=== PATIENT | female | born 1990 | race American Indian/Alaskan Native ===

== ENCOUNTER 2020-03-21 18:16 | Inpatient (IN) | payer MEDICAID ==
[2020-03-21] MEDS ORDERED: OXYTOCIN 10 UNIT/1 ML INJ ONE (18:27)
--- NOTE | 2020-03-21 18:52 | Procedure Note ---
OB Delivery Note - Delivery Date of Delivery: 03/21/20 Surgeon: HE BENAVIDES (CNM) Estimated blood loss: 100cc - Vaginal Delivery presentation: vertex Delivery position: OA Intrapartum events: precipitous labor- <3hr Delivery induction: none Delivery monitor: external FHT Route of delivery: Delivery placenta: spontaneous Delivery cord: 3 umbilical vessels Episiotomy: none Delivery laceration: none Anesthesia: none Delivery comments: Pt presented to triage with urge to push. SROM clear fluid upon SVE, c/c/+2. This CNM called to the room. Head delivered OA, restituted LOT, shoulders followed with gentle traction. to maternal abdomen, delayed cord clamping. Apgars 9/9. Placental delivered spontaneously and intact, 3VC. Cord blood collected. No lacerations noted. Dr. Reyes notified of patient's status. - Infant A at 1 minute: 9 at 5 minutes: 9 Gender: Female
[2020-03-21] MEDS ORDERED: OXYTOCIN 10 UNIT/1 ML INJ IM ONE (18:58)
--- NOTE | 2020-03-21 19:22 | History and Physical Report ---
History of Present Illness Date of examination: 03/21/20 History of present illness: Patient presented to labor and delivery with complaints of rupture membranes and regular contractions since approximately 4 PM. Patient arrived in triage completely dilated and subsequently had a precipitous delivery in triage. Patient with late care presented for first visit in office on March 05, 2020 at 36 weeks. Menstrual History Regularity: regular Menses every: 30 days Duration: 5 LMP: 07/15/2019 LMP reliability: definite LMP character: normal test type: urine test BC at conception: none Planned ? no EDC Calculations EDC Confirmation: 03/29/2020 Past History : 3 Term Births: 2 Premature Births: 0 Living Children: 2 Para: 2 Mult. Births: 0 Prev : 0 Prev. attempt? 0 Aborta: 0 Elect. Ab: 0 Spont. Ab: 0 Ectopics: 0 # 1 Delivery date: 2016 Weeks Gestation: term labor: no Delivery type: Anesthesia type: epidural Delivery location: [place] Infant Sex: Male weight: 7#4 # 2 Delivery date: 2018 Weeks Gestation: term labor: no Delivery type: Anesthesia type: none Delivery location: [place] Sex: Male weight: 6#4 Comments: unintended home del d/t precip del Past Medical History: Negative Past Medical History Past Surgical History: Negative Past Surgical History Past Medical History Surgery (Non-delinquency prevention officer): Negative Past Surgical History Abnormal PAP: negative ALEXANDRA Exposure: negative Infertility: negative Uterine Anomaly: negative Uterine Surgery (not C/S): negative Other Gynecologic Problems: negative Social Hx: Works at [employer] Infection History Hx of STD: none HIV Risk Eval: low risk Hepatitis B Risk Eval: low risk Personal hx. of genital herpes: no Partner hx. of genital herpes: no Rash, Viral, or Febrile illness since last LMP? no Varicella/Chicken Pox Status: Immunized Genetic History Congenital Heart Defect: Mom: no Dad: no Donna Disease: Mom: no Dad: no Thalassemia Mom: no Dad: no Neural Tube Defect Mom: no Dad: no Down's Syndrome Mom: no Dad: no Alejandro-Sachs Mom: no Dad: no Sickle Cell Disease/Trait Mom: no Dad: no Hemophilia Mom: no Dad: no Muscular Dystrophy Mom: no Dad: no Cystic Fibrosis Mom: no Dad: no Bautista Chorea Mom: no Dad: no Mental Retardation Mom: no Dad: no Fragile X Mom: no Dad: no Other Genetic/Chromosomal Disorder Mom: no Dad: no Child w/other defect Mom: no Dad: no Enviromental Exposures Xray Exposure: no Medication, drug, or alcohol use since LMP: no Chemical/Other Exposure: no Exposure to Cat Liter: no Hx of Parvovirus (Fifth Disease): no Occupational Exposure to Children: none Current Allergies (reviewed today): No known allergies Past History Past Medical History: no pertinent history Past Surgical History: no surgical history 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 (See HPI) Family/Genetic History: other (See HPI) Social history: full code, other (See HPI) - Obstetrical History Expected Date of Delivery: 03/29/20 Actual Gestation: 38 Week(s) 6 Day(s) : 3 Para: 3 Hx # Term Pregnancies: 3 Number of Pregnancies: 0 Spontaneous Abortions: 0 Induced : 0 Number of Living Children: 3 Medications and Allergies Allergies Allergy/AdvReac Type Severity Reaction Status Date / Time No Known Allergies Allergy Unverified 03/21/20 18:56 - Vital Signs Vital signs: Vital Signs Temp Resp 97.7 F 20 03/21/20 18:20 03/21/20 18:20 Temp Pulse Resp BP Pulse Ox 97.7 F 76 20 107/58 96 03/21/20 18:20 03/21/20 19:14 03/21/20 18:20 03/21/20 19:05 03/21/20 19:14 - Physical Exam Breasts: Positive: deferred Cardiovascular: Regular rate Lungs: Positive: Normal air movement Abdomen: Positive: normal appearance Results All other labs normal. Assessment and Plan - Patient Problems (1) Insufficient care, delivered, current hospitalization Current Visit: Yes Status: Acute (2) Vaginal delivery Current Visit: Yes Status: Acute Plan to address problem: Please see delivery note. Patient will be admitted and will start care
[2020-03-21] MEDS ORDERED: LACTATED RINGERS 1,000 ML IV SCH (19:30)
[2020-03-21 20:07] LABS: Hematocrit 36.6 % (30.3-42.9); Hemoglobin 12.4 gm/dl (10.1-14.3); Mean Corpuscular HGB Conc 34 % (30-34); Mean Corpuscular Volume 92 fl (79-97); Platelet Count 196 K/mm3 (140-440); Red Blood Count 3.99 M/mm3 (3.65-5.03); Red Cell Distribution Width 12.8 % (13.2-15.2)
[2020-03-21] MEDS ORDERED: WITCH HAZEL/ GLYCERIN PAD TP PRN (23:02)
[2020-03-21] MEDS ORDERED: LANOLIN/ZINC/DIMETHICONE (LANSINOH) 7 GM TP PRN (23:02)
[2020-03-21] MEDS ORDERED: diphenhydrAMINE 25 MG CAP PO PRN (23:02)
[2020-03-21] MEDS ORDERED: PROMETHAZINE 25 MG TAB PO PRN (23:02)
[2020-03-21] MEDS ORDERED: MAGNESIUM HYDROXIDE (MOM) ORAL LIQD UDC PO PRN (23:02)
[2020-03-22] MEDS: IBUPROFEN 600 MG TAB PO SCH ×3 (00:14→17:10)
[2020-03-22] MEDS: DOCUSATE SODIUM 100 MG CAP PO SCH ×2 (00:15→10:14)
[2020-03-22 08:39] LABS: Hematocrit 35.5 % (30.3-42.9); Hemoglobin 11.9 gm/dl (10.1-14.3)
[2020-03-22] MEDS ORDERED: PRENATAL VIT27-FE FUMARATE-FOLIC ACID VIT TAB PO SCH (10:00)
--- NOTE | 2020-03-22 11:09 | Discharge Summary ---
Providers - Providers Date of Admission: 03/21/20 19:34 Date of discharge: 03/22/20 Attending physician: JANET JEORNIMO 03/21/20 23:02 Consult to Hospice Art Therapist [CONS] Routine Reason For Exam: assistance with , SNS Primary care physician: JANET JERONIMO Hospitalization Reason for admission: active labor Delivery: Laceration: none Discharge diagnosis: IUP at term delivered baby: female Condition at discharge: Good Disposition: DC-01 TO HOME OR SELFCARE - Discharge Diagnoses (1) Vaginal delivery Status: Acute Plan - Provider Discharge Summary Additional instructions: [] Smoking cessation referral if applicable(refer to patient education folder f or contact #) [] Refer to [facility] Call your doctor immediately for: * Fever > 100.5 * Heavy vaginal bleeding ( >1 pad per hour) * Severe persistent headache * Shortness of breath * Reddened, hot, painful area to leg or breast * Drainage or odor from incision. * Keep incision clean and dry at all times and follow doctor's instructions regarding bathing/showering - Follow up plan Follow up: JANET JERONIMO MD [Primary Care Provider] - 7 Days
--- NOTE | 2020-03-22 11:09 | Progress Note ---
Assessment and Plan - Patient Problems (1) Vaginal delivery Current Visit: Yes Status: Acute Plan to address problem: -routine pp care -d/c home in the am if AFVSS Subjective - Subjective Date of service: 03/22/20 Principal diagnosis: PPD #1 s/p precip Interval history: Pt doing well. Desires d/c in the am. no c/o today. Breast feeding. Patient reports: appetite normal, voiding normally, pain well controlled, no dizzy ambulation : doing well, nursing well Objective - Vital Signs Latest vital signs: Vital Signs Temp Pulse Resp BP BP Pulse Ox 03/22/20 07:52 97.9 F 71 16 101/60 98 03/22/20 06:46 98.3 F 66 18 91/50 97 03/22/20 02:04 99.6 F 85 20 97/53 97 03/22/20 00:14 20 03/21/20 20:55 98.1 F 77 20 106/50 96 03/21/20 20:29 78 97 03/21/20 20:24 81 98 03/21/20 20:19 64 103/57 94 03/21/20 20:14 67 96 03/21/20 20:09 75 98 03/21/20 20:04 67 106/56 97 03/21/20 19:59 70 98 03/21/20 19:54 75 97 03/21/20 19:50 71 102/51 03/21/20 19:49 66 98 03/21/20 19:44 68 98 03/21/20 19:39 71 98 03/21/20 19:34 81 98 03/21/20 19:29 76 97 03/21/20 19:24 82 96 03/21/20 19:19 71 103/58 94 03/21/20 19:14 76 96 03/21/20 19:09 73 92 03/21/20 19:06 79 93 03/21/20 19:05 76 107/58 03/21/20 19:04 81 99 03/21/20 18:59 77 99 03/21/20 18:54 76 98 03/21/20 18:49 69 107/63 100 03/21/20 18:44 77 99 03/21/20 18:41 81 100/55 03/21/20 18:40 75 100/59 03/21/20 18:39 75 98 03/21/20 18:37 77 105/55 03/21/20 18:34 97 H 82 L 03/21/20 18:20 97.7 F 20 Intake and Output 03/21/20 03/22/20 03/22/20 22:59 06:59 14:59 Intake Total 480 Output Total 800 Balance -320 Intake: Intake, Free Water 480 Output: Urine 800 Void 800 Other: Total, Output Amount 800 Weight 73.028 kg Estimated Blood Loss 100 - Exam Breasts: Present: deferred Lungs: Present: Clear to auscultation, Normal air movement Abdomen: Present: normal appearance, soft. Absent: distention, tenderness, guarding Extremities: Present: normal. Absent: tenderness, edema - Labs Labs: Abnormal lab results 03/21/20 Range/Units 19:30 RDW 12.8 L (13.2-15.2) %
[2020-03-22 16:22] VITALS: BP 106/54
== END 2020-03-22 19:51 | disposition home or self-care (01) | DRG 775 ==
LOC: APU 18:16 → TRG 18:16 → APU 18:17 → TRG 19:34 → APU 19:34 → OB 21:34
PROVIDERS: ADMIT Obstetrics & Gynecology; ATTEND Obstetrics & Gynecology
PROC: 10E0XZZ Delivery of Products of Conception, External Approach (ICD-10-PCS; principal; 2020-03-21)
DX: O62.3 Precipitate labor (principal); Z3A.38 38 weeks gestation of pregnancy; O09.33 Supervision of pregnancy with insufficient antenatal care, third trimester; Z37.0 Single live birth
CPT/HCPCS: 36415; 85014; 85018; 85027; 86850; 86900; 86901; G0378; J2590; U0003